=== PATIENT | male | born 1965 | race Two or more races ===

== ENCOUNTER 2020-06-24 22:30 | Inpatient (IN) | payer MEDICARE, MEDICAID ==
[~2020-06-24] VITALS: Ht 162.6 cm; Wt 69.4 kg
[2020-06-24 21:35] VITALS: BP 128/72
[2020-06-24 22:30] VITALS: BP 128/72
[2020-06-25] MEDS ORDERED: AMLO10TA80 PO (00:26)
[2020-06-25] MEDS ORDERED: REN800 PO (00:26)
[2020-06-25] MEDS ORDERED: SITA50TA3 PO (00:26)
[2020-06-25] MEDS ORDERED: LISI2.5T47 PO (00:26)
[2020-06-25] MEDS ORDERED: HYDR-4134 PO (00:26)
[2020-06-25] MEDS ORDERED: FOLI0.8T23 MT (00:26)
[2020-06-25] MEDS ORDERED: CARV3.1242 PO (00:26)
[2020-06-25] MEDS ORDERED: FURO40TA5 PO (00:26)
[2020-06-25] MEDS ORDERED: DOCU250C69 PO (00:26)
[2020-06-25] MEDS: SODIUM CHLORIDE 0.9% 1,000 ML IV SCH (02:45)
[2020-06-25] MEDS ORDERED: DEXTROSE 50% WATER 50ML SYRINGE IV PRN (02:45)
[2020-06-25] MEDS ORDERED: HEPARIN SODIUM 1,000 UNIT/1ML VIAL IV NR (03:00)
[2020-06-25 04:00] VITALS: BP 133/77
[2020-06-25] MEDS ORDERED: PIPERACILLIN/TAZOBACTAM 3.375 G in DEXT 5% WATER 100 ML IV NR (06:00)
[2020-06-25] MEDS: HYDRALAZINE HCL 25MG TABLET PO SCH ×3 (06:34→22:55)
[2020-06-25] MEDS: BLOOD SUGAR DIAGNOSTIC STRIP TEST SCH ×4 (06:34→21:00)
[2020-06-25] MEDS: INSULIN LISPRO 100 UNITS/ML SUBCUT SCH ×4 (07:50→22:06)
[2020-06-25 08:00] VITALS: BP 133/62
[2020-06-25] MEDS ORDERED: PIPERACILLIN/TAZOBACTAM 3.375GM/50ML PREMIX IV SCH (09:00)
[2020-06-25] MEDS: CARVEDILOL 6.25 MG TABLET PO SCH ×2 (11:14→22:03)
[2020-06-25] MEDS: FOLIC ACID/VITAMIN B COMP W-C TABLET PO SCH (11:14)
[2020-06-25] MEDS: ASPIRIN 81MG TABLET PO SCH (11:14)
[2020-06-25] MEDS: ISOSORBIDE MONONITRATE 60MG TABLET SR 24HR PO SCH (11:14)
[2020-06-25] MEDS: FERROUS SULFATE 325MG TABLET PO SCH ×3 (11:14→16:57)
[2020-06-25] MEDS ORDERED: *PATIENT'S OWN MEDICATION STORAGE XX SCH (11:30)
[2020-06-25 12:00] VITALS: BP 155/87
[2020-06-25 12:04] LABS: HEMATOCRIT. 37.1 % (42.0-52.0); HEMOGLOBIN. 12.2 g/dL (14.0-18.0); MEAN CORPUSCULAR HEMOGLOBIN 28.2 pg (28.0-32.0); MEAN CORPUSCULAR VOLUME 85.5 fL (80.0-94.0); MEAN PLATELET VOLUME 8.3 fl (7.4-10.4); PLATELET 160 x1000/uL (130-400); RED BLOOD CELL COUNT 4.34 mill/uL (4.7-6.1); RED CELL DISTRIBUTION WIDTH 18.4 % (11.6-14.6)
[2020-06-25 12:05] LABS: INR 1.1; PROTHROMBIN TIME 11.5 sec (9.6-11.0)
[2020-06-25 13:18] LABS: CREATINE KINASE MB FRACTION 1.6 ng/mL (0.5-3.6)
[2020-06-25 16:00] VITALS: BP 143/75
[2020-06-25 16:42] LABS: PLATELET ESTIMATE NORMAL
[2020-06-25] MEDS: ACETAMINOPHEN 650MG/20.3ML UDC PO PRN (17:45)
[2020-06-25 20:00] VITALS: BP 114/74
[2020-06-25] MEDS: ATORVASTATIN CALCIUM 40MG TABLET PO SCH (22:02)
[2020-06-25] MEDS: INSULIN GLARGINE UD 100 UNITS/ML SYR SUBCUT SCH (22:57)
[2020-06-26] VITALS: BP 121/64
[2020-06-26 04:00] VITALS: BP 137/72
[2020-06-26] MEDS: HYDRALAZINE HCL 25MG TABLET PO SCH ×3 (07:01→21:00)
[2020-06-26] MEDS: BLOOD SUGAR DIAGNOSTIC STRIP TEST SCH ×4 (07:26→20:15)
[2020-06-26] MEDS: INSULIN LISPRO 100 UNITS/ML SUBCUT SCH ×4 (07:27→20:57)
[2020-06-26 08:00] VITALS: BP 152/78
[2020-06-26 08:28] LABS: BASOPHILS % 1.1 % (0.0-2.0); EOSINOPHILS % 2.2 % (0.0-5.0); HEMATOCRIT. 35.1 % (42.0-52.0); HEMOGLOBIN. 11.3 g/dL (14.0-18.0); LYMPHOCYTES % 13.1 % (20.0-50.0); MEAN CORPUSCULAR VOLUME 87.2 fL (80.0-94.0); MEAN PLATELET VOLUME 8.8 fl (7.4-10.4); MONOCYTES % 9.2 % (2.0-8.0); NEUTROPHILS % 74.4 % (40.0-76.0); PLATELET 164 x1000/uL (130-400); RED BLOOD CELL COUNT 4.03 mill/uL (4.7-6.1); RED CELL DISTRIBUTION WIDTH 18.2 % (11.6-14.6)
[2020-06-26 08:41] LABS: PHOSPHORUS 8.5 mg/dL (2.5-4.9)
[2020-06-26] MEDS: MORPHINE SULFATE 2 MG/ML CPJ (NOT FOR IM USE) IV PRN ×2 (09:33→20:58)
[2020-06-26] MEDS: CARVEDILOL 6.25 MG TABLET PO SCH ×2 (09:33→20:59)
[2020-06-26] MEDS: FOLIC ACID/VITAMIN B COMP W-C TABLET PO SCH (09:33)
[2020-06-26] MEDS: ISOSORBIDE MONONITRATE 60MG TABLET SR 24HR PO SCH (09:33)
[2020-06-26] MEDS: ASPIRIN 81MG TABLET PO SCH (09:33)
[2020-06-26] MEDS: FERROUS SULFATE 325MG TABLET PO SCH ×3 (09:34→17:42)
[2020-06-26] MEDS ORDERED: POTASSIUM CHLORIDE 20MEQ TABLET SR PO NR (10:15)
[2020-06-26 12:00] VITALS: BP 148/74
[2020-06-26] MEDS ORDERED: BACITRACIN 50,000 UNITS/VIAL ONE (12:02)
[2020-06-26] MEDS ORDERED: BACITRACIN 15GM TUBE TOP ONE (12:32)
[2020-06-26] MEDS ORDERED: ROPIVACAINE HCL 10MG/ML 20 ML VIAL EPI ONE (12:33)
[2020-06-26] MEDS ORDERED: VANCOMYCIN HCL 1 GM/VIAL ONE (12:33)
[2020-06-26] MEDS ORDERED: MIDAZOLAM HCL 2 MG/2 ML VIAL ONE (12:50)
[2020-06-26] MEDS: SEVELAMER CARBONATE 800 MG TABLET PO SCH ×2 (12:50→17:42)
[2020-06-26] MEDS ORDERED: ONDANSETRON HCL 4MG/2ML INJ ONE (13:52)
[2020-06-26] MEDS ORDERED: DEXAMETHASONE 4MG/ML 1ML VIAL ONE (13:53)
[2020-06-26] MEDS ORDERED: EPHEDRINE SULFATE 50MG/ML VIAL ONE (13:57)
[2020-06-26] MEDS ORDERED: HYDROMORPHONE HCL/PF 2MG/ML CPJ IV PRN (15:15)
[2020-06-26] MEDS: PIPERACILLIN/TAZOBACTAM 2.25 G in DEXTROSE 5% WATER 50 ML IV SCH (18:55)
[2020-06-26 20:00] VITALS: BP 125/71
[2020-06-26] MEDS: ATORVASTATIN CALCIUM 40MG TABLET PO SCH (20:58)
[2020-06-26] MEDS: INSULIN GLARGINE UD 100 UNITS/ML SYR SUBCUT SCH (22:00)
[2020-06-27] VITALS: BP 141/73
[2020-06-27 04:00] VITALS: BP 168/75
[2020-06-27] MEDS: MORPHINE SULFATE 2 MG/ML CPJ (NOT FOR IM USE) IV PRN ×5 (05:13→22:01)
[2020-06-27] MEDS: SODIUM CHLORIDE 0.9% 1,000 ML IV SCH ×2 (05:14→22:18)
[2020-06-27] MEDS: PIPERACILLIN/TAZOBACTAM 2.25 G in DEXTROSE 5% WATER 50 ML IV SCH ×2 (05:14→17:25)
[2020-06-27] MEDS: HYDRALAZINE HCL 25MG TABLET PO SCH ×3 (05:44→22:05)
[2020-06-27] MEDS: BLOOD SUGAR DIAGNOSTIC STRIP TEST SCH ×4 (05:47→21:57)
[2020-06-27 06:46] LABS: BASOPHILS % 0.3 % (0.0-2.0); EOSINOPHILS % 0.1 % (0.0-5.0); HEMATOCRIT. 36.1 % (42.0-52.0); HEMOGLOBIN. 11.8 g/dL (14.0-18.0); LYMPHOCYTES % 8.8 % (20.0-50.0); MEAN CORPUSCULAR HEMOGLOBIN 27.5 pg (28.0-32.0); MEAN CORPUSCULAR VOLUME 84.4 fL (80.0-94.0); NEUTROPHILS % 82.8 % (40.0-76.0); PLATELET 151 x1000/uL (130-400); RED BLOOD CELL COUNT 4.28 mill/uL (4.7-6.1); RED CELL DISTRIBUTION WIDTH 17.9 % (11.6-14.6)
[2020-06-27 07:02] LABS: PHOSPHORUS 6.3 mg/dL (2.5-4.9)
[2020-06-27 08:00] VITALS: BP 152/70
[2020-06-27] MEDS: SEVELAMER CARBONATE 800 MG TABLET PO SCH ×3 (08:57→17:23)
[2020-06-27] MEDS: FERROUS SULFATE 325MG TABLET PO SCH ×3 (08:57→17:23)
[2020-06-27] MEDS: INSULIN LISPRO 100 UNITS/ML SUBCUT SCH ×4 (09:05→21:45)
[2020-06-27] MEDS: FOLIC ACID/VITAMIN B COMP W-C TABLET PO SCH (09:07)
[2020-06-27] MEDS: ISOSORBIDE MONONITRATE 60MG TABLET SR 24HR PO SCH (09:07)
[2020-06-27] MEDS: ASPIRIN 81MG TABLET PO SCH (09:07)
[2020-06-27] MEDS: CARVEDILOL 6.25 MG TABLET PO SCH ×2 (09:07→21:57)
[2020-06-27 12:00] VITALS: BP 121/51
[2020-06-27 16:00] VITALS: BP 138/56
[2020-06-27 21:10] VITALS: BP 152/47
[2020-06-27] MEDS: INSULIN GLARGINE UD 100 UNITS/ML SYR SUBCUT SCH (21:46)
[2020-06-27] MEDS: ATORVASTATIN CALCIUM 40MG TABLET PO SCH (21:56)
[2020-06-28] MEDS: ACETAMINOPHEN 650MG/20.3ML UDC PO PRN (00:15)
[2020-06-28 01:03] VITALS: BP 131/53
[2020-06-28] MEDS: MORPHINE SULFATE 2 MG/ML CPJ (NOT FOR IM USE) IV PRN ×3 (01:42→19:59)
[2020-06-28 04:53] VITALS: BP 151/58
[2020-06-28] MEDS: SODIUM CHLORIDE 0.9% 1,000 ML IV SCH ×2 (05:05→21:46)
[2020-06-28] MEDS: BLOOD SUGAR DIAGNOSTIC STRIP TEST SCH ×4 (05:57→21:46)
[2020-06-28] MEDS: INSULIN LISPRO 100 UNITS/ML SUBCUT SCH ×4 (05:57→21:50)
[2020-06-28] MEDS: PIPERACILLIN/TAZOBACTAM 2.25 G in DEXTROSE 5% WATER 50 ML IV SCH ×2 (05:59→18:44)
[2020-06-28] MEDS: HYDRALAZINE HCL 25MG TABLET PO SCH ×3 (06:00→21:37)
[2020-06-28 07:17] LABS: BASOPHILS % 0.8 % (0.0-2.0); EOSINOPHILS % 1.9 % (0.0-5.0); HEMATOCRIT. 32.2 % (42.0-52.0); HEMOGLOBIN. 10.6 g/dL (14.0-18.0); MEAN CORPUSCULAR HEMOGLOBIN 28.2 pg (28.0-32.0); MEAN CORPUSCULAR VOLUME 85.2 fL (80.0-94.0); MEAN PLATELET VOLUME 7.7 fl (7.4-10.4); MONOCYTES % 8.2 % (2.0-8.0); NEUTROPHILS % 78.1 % (40.0-76.0); PLATELET 130 x1000/uL (130-400); RED BLOOD CELL COUNT 3.77 mill/uL (4.7-6.1); RED CELL DISTRIBUTION WIDTH 17.4 % (11.6-14.6)
[2020-06-28 07:26] LABS: PHOSPHORUS 5.6 mg/dL (2.5-4.9)
[2020-06-28 08:00] VITALS: BP 159/68
[2020-06-28] MEDS: SEVELAMER CARBONATE 800 MG TABLET PO SCH ×3 (08:53→17:42)
[2020-06-28] MEDS: ISOSORBIDE MONONITRATE 60MG TABLET SR 24HR PO SCH (08:54)
[2020-06-28] MEDS: CARVEDILOL 6.25 MG TABLET PO SCH ×2 (08:55→21:37)
[2020-06-28] MEDS: ASPIRIN 81MG TABLET PO SCH (08:55)
[2020-06-28] MEDS: FERROUS SULFATE 325MG TABLET PO SCH ×3 (08:55→18:41)
[2020-06-28] MEDS: FOLIC ACID/VITAMIN B COMP W-C TABLET PO SCH (08:56)
[2020-06-28] MEDS: HYDROCODONE/ACETAMINOPHEN 10/325MG TABLET PO PRN ×4 (10:33→22:39)
[2020-06-28 12:00] VITALS: BP 104/42
[2020-06-28 16:00] VITALS: BP 143/64
[2020-06-28 20:00] VITALS: BP 169/81
[2020-06-28] MEDS: ATORVASTATIN CALCIUM 40MG TABLET PO SCH (21:37)
[2020-06-28] MEDS: INSULIN GLARGINE UD 100 UNITS/ML SYR SUBCUT SCH (21:50)
[2020-06-29 04:00] VITALS: BP 144/63
[2020-06-29] MEDS: HYDRALAZINE HCL 25MG TABLET PO SCH ×3 (05:55→21:00)
[2020-06-29] MEDS: PIPERACILLIN/TAZOBACTAM 2.25 G in DEXTROSE 5% WATER 50 ML IV SCH ×2 (05:55→17:32)
[2020-06-29] MEDS: BLOOD SUGAR DIAGNOSTIC STRIP TEST SCH ×4 (05:56→20:57)
[2020-06-29] MEDS: INSULIN LISPRO 100 UNITS/ML SUBCUT SCH ×4 (05:58→20:57)
[2020-06-29] MEDS: HYDROCODONE/ACETAMINOPHEN 10/325MG TABLET PO PRN ×3 (06:04→22:46)
[2020-06-29 07:23] LABS: EOSINOPHILS % 1.7 % (0.0-5.0); HEMATOCRIT. 33.8 % (42.0-52.0); HEMOGLOBIN. 11.1 g/dL (14.0-18.0); LYMPHOCYTES % 10.8 % (20.0-50.0); MEAN CORPUSCULAR HEMOGLOBIN 28.1 pg (28.0-32.0); MEAN CORPUSCULAR VOLUME 85.5 fL (80.0-94.0); MONOCYTES % 8.5 % (2.0-8.0); PLATELET 126 x1000/uL (130-400); RED BLOOD CELL COUNT 3.96 mill/uL (4.7-6.1); RED CELL DISTRIBUTION WIDTH 17.7 % (11.6-14.6)
[2020-06-29 08:00] VITALS: BP 152/63
[2020-06-29 08:06] LABS: PHOSPHORUS 4.1 mg/dL (2.5-4.9)
[2020-06-29] MEDS: ISOSORBIDE MONONITRATE 60MG TABLET SR 24HR PO SCH (09:25)
[2020-06-29] MEDS: ASPIRIN 81MG TABLET PO SCH (09:28)
[2020-06-29] MEDS: FOLIC ACID/VITAMIN B COMP W-C TABLET PO SCH (09:28)
[2020-06-29] MEDS: FERROUS SULFATE 325MG TABLET PO SCH ×3 (09:28→17:32)
[2020-06-29] MEDS: CARVEDILOL 6.25 MG TABLET PO SCH ×2 (09:28→20:57)
[2020-06-29] MEDS: SEVELAMER CARBONATE 800 MG TABLET PO SCH ×3 (09:30→17:32)
[2020-06-29 12:00] VITALS: BP 125/56
[2020-06-29 16:00] VITALS: BP 139/62
[2020-06-29 20:00] VITALS: BP 146/71
[2020-06-29] MEDS: ATORVASTATIN CALCIUM 40MG TABLET PO SCH (20:56)
[2020-06-29] MEDS: INSULIN GLARGINE UD 100 UNITS/ML SYR SUBCUT SCH (21:00)
[2020-06-30] VITALS: BP 166/68
[2020-06-30] MEDS: SODIUM CHLORIDE 0.9% 1,000 ML IV SCH (03:46)
[2020-06-30 04:00] VITALS: BP 166/74
[2020-06-30] MEDS: MORPHINE SULFATE 2 MG/ML CPJ (NOT FOR IM USE) IV PRN ×2 (04:39→12:57)
[2020-06-30] MEDS: PIPERACILLIN/TAZOBACTAM 2.25 G in DEXTROSE 5% WATER 50 ML IV SCH ×2 (05:27→17:54)
[2020-06-30] MEDS: HYDRALAZINE HCL 25MG TABLET PO SCH ×3 (05:27→21:12)
[2020-06-30] MEDS: BLOOD SUGAR DIAGNOSTIC STRIP TEST SCH ×4 (06:28→21:12)
[2020-06-30 06:46] LABS: HEMATOCRIT. 31.1 % (42.0-52.0); HEMOGLOBIN. 10.2 g/dL (14.0-18.0); MEAN CORPUSCULAR HEMOGLOBIN 28.3 pg (28.0-32.0); MEAN CORPUSCULAR VOLUME 86.2 fL (80.0-94.0); MEAN PLATELET VOLUME 7.8 fl (7.4-10.4); PLATELET 110 x1000/uL (130-400); RED CELL DISTRIBUTION WIDTH 17.8 % (11.6-14.6)
[2020-06-30 07:42] LABS: PHOSPHORUS 3.9 mg/dL (2.5-4.9)
[2020-06-30] MEDS: INSULIN LISPRO 100 UNITS/ML SUBCUT SCH ×4 (07:50→21:19)
[2020-06-30 08:00] VITALS: BP 144/70
[2020-06-30] MEDS: FERROUS SULFATE 325MG TABLET PO SCH ×3 (08:58→17:54)
[2020-06-30] MEDS: SEVELAMER CARBONATE 800 MG TABLET PO SCH ×3 (08:58→17:54)
[2020-06-30] MEDS: HYDROCODONE/ACETAMINOPHEN 10/325MG TABLET PO PRN ×2 (09:56→18:18)
[2020-06-30] MEDS: ASPIRIN 81MG TABLET PO SCH (09:56)
[2020-06-30] MEDS: ISOSORBIDE MONONITRATE 60MG TABLET SR 24HR PO SCH (09:57)
[2020-06-30] MEDS: CARVEDILOL 6.25 MG TABLET PO SCH ×2 (09:57→21:11)
[2020-06-30] MEDS: FOLIC ACID/VITAMIN B COMP W-C TABLET PO SCH (09:57)
[2020-06-30 12:00] VITALS: BP 134/57
[2020-06-30 16:00] VITALS: BP 153/62
[2020-06-30 20:00] VITALS: BP_SYST 127; BP_SYST 148; BP_DIAS 61; BP_DIAS 71
[2020-06-30 20:38] LABS: PLATELET ESTIMATE DECREASED
[2020-06-30] MEDS: ATORVASTATIN CALCIUM 40MG TABLET PO SCH (21:12)
[2020-06-30] MEDS: INSULIN GLARGINE UD 100 UNITS/ML SYR SUBCUT SCH (21:20)
[2020-07-01] VITALS: BP 177/91
[2020-07-01] MEDS: SODIUM CHLORIDE 0.9% 1,000 ML IV SCH (01:49)
[2020-07-01 04:00] VITALS: BP 161/84
[2020-07-01] MEDS: HYDRALAZINE HCL 25MG TABLET PO SCH ×3 (05:37→22:53)
[2020-07-01 06:15] LABS: HEMATOCRIT. 34.1 % (42.0-52.0); HEMOGLOBIN. 11.1 g/dL (14.0-18.0); MEAN CORPUSCULAR HEMOGLOBIN 27.8 pg (28.0-32.0); MEAN CORPUSCULAR VOLUME 85.3 fL (80.0-94.0); MEAN PLATELET VOLUME 7.8 fl (7.4-10.4); PLATELET 120 x1000/uL (130-400); RED CELL DISTRIBUTION WIDTH 17.8 % (11.6-14.6)
[2020-07-01] MEDS: BLOOD SUGAR DIAGNOSTIC STRIP TEST SCH ×4 (06:53→21:00)
[2020-07-01 07:06] LABS: PHOSPHORUS 4.1 mg/dL (2.5-4.9)
[2020-07-01] MEDS: INSULIN LISPRO 100 UNITS/ML SUBCUT SCH ×4 (07:50→21:00)
[2020-07-01 08:00] VITALS: BP 148/63
[2020-07-01] MEDS: FERROUS SULFATE 325MG TABLET PO SCH ×3 (08:45→17:21)
[2020-07-01] MEDS: ASPIRIN 81MG TABLET PO SCH (08:45)
[2020-07-01] MEDS: HYDROCODONE/ACETAMINOPHEN 10/325MG TABLET PO PRN ×3 (08:47→20:09)
[2020-07-01] MEDS: FOLIC ACID/VITAMIN B COMP W-C TABLET PO SCH (08:47)
[2020-07-01] MEDS: SEVELAMER CARBONATE 800 MG TABLET PO SCH ×3 (08:47→17:21)
[2020-07-01] MEDS: ISOSORBIDE MONONITRATE 60MG TABLET SR 24HR PO SCH (08:48)
[2020-07-01] MEDS: CARVEDILOL 6.25 MG TABLET PO SCH (08:48)
[2020-07-01] MEDS: ACETAMINOPHEN 650MG/20.3ML UDC PO PRN (10:24)
[2020-07-01 12:00] VITALS: BP 118/40
[2020-07-01 13:54] LABS: PLATELET ESTIMATE DECREASED
[2020-07-01] MEDS: MEROPENEM 500MG in NORMAL SALINE 50ML IV SCH (15:38)
[2020-07-01 16:00] VITALS: BP 157/74
[2020-07-01 20:00] VITALS: BP 118/63
[2020-07-01] MEDS: ATORVASTATIN CALCIUM 40MG TABLET PO SCH (21:04)
[2020-07-01] MEDS: INSULIN GLARGINE UD 100 UNITS/ML SYR SUBCUT SCH (21:14)
[2020-07-01] MEDS: CARVEDILOL 12.5MG TABLET PO SCH (22:54)
[2020-07-02] VITALS: BP 157/79
[2020-07-02] MEDS: HYDROCODONE/ACETAMINOPHEN 10/325MG TABLET PO PRN ×5 (00:08→23:14)
[2020-07-02] MEDS: SODIUM CHLORIDE 0.9% 1,000 ML IV SCH (02:45)
[2020-07-02 04:00] VITALS: BP 149/80
[2020-07-02 06:59] LABS: HEMATOCRIT. 34.1 % (42.0-52.0); HEMOGLOBIN. 10.9 g/dL (14.0-18.0); MEAN CORPUSCULAR HEMOGLOBIN 27.5 pg (28.0-32.0); MEAN PLATELET VOLUME 7.2 fl (7.4-10.4); PLATELET 113 x1000/uL (130-400); RED BLOOD CELL COUNT 3.97 mill/uL (4.7-6.1); RED CELL DISTRIBUTION WIDTH 17.6 % (11.6-14.6)
[2020-07-02] MEDS: BLOOD SUGAR DIAGNOSTIC STRIP TEST SCH ×4 (06:59→21:00)
[2020-07-02] MEDS: HYDRALAZINE HCL 25MG TABLET PO SCH ×3 (07:09→23:12)
[2020-07-02 07:25] LABS: PHOSPHORUS 3.4 mg/dL (2.5-4.9)
[2020-07-02] MEDS: INSULIN LISPRO 100 UNITS/ML SUBCUT SCH ×4 (07:50→21:00)
[2020-07-02 08:00] VITALS: BP 124/74
[2020-07-02] MEDS: SEVELAMER CARBONATE 800 MG TABLET PO SCH ×3 (08:42→18:16)
[2020-07-02] MEDS: CARVEDILOL 12.5MG TABLET PO SCH ×2 (08:43→22:53)
[2020-07-02] MEDS: FERROUS SULFATE 325MG TABLET PO SCH ×3 (08:43→18:16)
[2020-07-02] MEDS: FOLIC ACID/VITAMIN B COMP W-C TABLET PO SCH (08:43)
[2020-07-02] MEDS: ASPIRIN 81MG TABLET PO SCH (08:45)
[2020-07-02] MEDS: ISOSORBIDE MONONITRATE 60MG TABLET SR 24HR PO SCH (08:45)
[2020-07-02 12:00] VITALS: BP 120/54
[2020-07-02] MEDS ORDERED: MEROPENEM 1000MG in NORMAL SALINE 100ML IV SCH (14:00)
[2020-07-02] MEDS: MEROPENEM 500MG in NORMAL SALINE 50ML IV SCH (14:48)
[2020-07-02 16:00] VITALS: BP 122/56
[2020-07-02] MEDS ORDERED: MEROPENEM 500 MG in SODIUM CHLORIDE 0.9% 50 ML IV SCH (16:00)
[2020-07-02] MEDS ORDERED: VANCOMYCIN 1500MG in DEXTROSE 5% WATER 250ML IV SCH (17:00)
[2020-07-02 18:24] LABS: PLATELET ESTIMATE DECREASED
[2020-07-02 20:00] VITALS: BP 133/54
[2020-07-02] MEDS: ATORVASTATIN CALCIUM 40MG TABLET PO SCH (22:46)
[2020-07-02] MEDS: INSULIN GLARGINE UD 100 UNITS/ML SYR SUBCUT SCH (22:46)
[2020-07-03] VITALS: BP 144/54
[2020-07-03] MEDS: SODIUM CHLORIDE 0.9% 1,000 ML IV SCH (02:45)
[2020-07-03 04:00] VITALS: BP 152/61
[2020-07-03] MEDS: HYDRALAZINE HCL 25MG TABLET PO SCH ×3 (07:05→21:38)
[2020-07-03] MEDS: BLOOD SUGAR DIAGNOSTIC STRIP TEST SCH ×4 (07:20→21:30)
[2020-07-03] MEDS: INSULIN LISPRO 100 UNITS/ML SUBCUT SCH ×4 (07:50→21:00)
[2020-07-03 08:00] VITALS: BP 143/87
[2020-07-03] MEDS: SEVELAMER CARBONATE 800 MG TABLET PO SCH ×3 (09:23→17:46)
[2020-07-03] MEDS: ZINC SULFATE 220 MG ( 50 ) CAPSULE PO SCH (09:23)
[2020-07-03] MEDS: FOLIC ACID/VITAMIN B COMP W-C TABLET PO SCH (09:23)
[2020-07-03] MEDS: FERROUS SULFATE 325MG TABLET PO SCH ×3 (09:23→17:47)
[2020-07-03] MEDS: ASPIRIN 81MG TABLET PO SCH (09:23)
[2020-07-03] MEDS: HYDROCODONE/ACETAMINOPHEN 10/325MG TABLET PO PRN ×2 (09:24→17:48)
[2020-07-03] MEDS: ISOSORBIDE MONONITRATE 60MG TABLET SR 24HR PO SCH (09:24)
[2020-07-03] MEDS: CARVEDILOL 12.5MG TABLET PO SCH ×2 (09:24→21:39)
[2020-07-03 09:27] LABS: HEMATOCRIT. 29.1 % (42.0-52.0); HEMOGLOBIN. 9.7 g/dL (14.0-18.0); MEAN CORPUSCULAR HEMOGLOBIN 28.1 pg (28.0-32.0); MEAN CORPUSCULAR VOLUME 84.8 fL (80.0-94.0); MEAN PLATELET VOLUME 7.5 fl (7.4-10.4); PLATELET 121 x1000/uL (130-400); RED BLOOD CELL COUNT 3.44 mill/uL (4.7-6.1); RED CELL DISTRIBUTION WIDTH 17.6 % (11.6-14.6)
[2020-07-03 09:44] LABS: PHOSPHORUS 2.9 mg/dL (2.5-4.9)
[2020-07-03 12:00] VITALS: BP 142/68
[2020-07-03] MEDS: MICAFUNGIN 100 MG in SODIUM CHLORIDE 0.9% 100 ML IV SCH (13:04)
[2020-07-03 16:00] VITALS: BP 124/68
[2020-07-03 20:00] VITALS: BP 103/51
[2020-07-03 21:11] LABS: PLATELET ESTIMATE DECREASED
[2020-07-03] MEDS: ATORVASTATIN CALCIUM 40MG TABLET PO SCH (21:38)
[2020-07-03] MEDS: INSULIN GLARGINE UD 100 UNITS/ML SYR SUBCUT SCH (21:39)
[2020-07-04] VITALS: BP 136/57
[2020-07-04] MEDS: HYDROCODONE/ACETAMINOPHEN 10/325MG TABLET PO PRN ×5 (02:36→23:01)
[2020-07-04] MEDS: SODIUM CHLORIDE 0.9% 1,000 ML IV SCH (02:45)
[2020-07-04 04:00] VITALS: BP 139/56
[2020-07-04] MEDS: HYDRALAZINE HCL 25MG TABLET PO SCH ×3 (06:40→21:39)
[2020-07-04 07:13] LABS: BASOPHILS % 0.3 % (0.0-2.0); EOSINOPHILS % 2.7 % (0.0-5.0); HEMATOCRIT. 29.9 % (42.0-52.0); HEMOGLOBIN. 9.7 g/dL (14.0-18.0); LYMPHOCYTES % 13.6 % (20.0-50.0); MEAN CORPUSCULAR HEMOGLOBIN 27.8 pg (28.0-32.0); MEAN CORPUSCULAR VOLUME 85.1 fL (80.0-94.0); MEAN PLATELET VOLUME 7.7 fl (7.4-10.4); MONOCYTES % 11.5 % (2.0-8.0); NEUTROPHILS % 71.9 % (40.0-76.0); PLATELET 119 x1000/uL (130-400); RED BLOOD CELL COUNT 3.51 mill/uL (4.7-6.1); RED CELL DISTRIBUTION WIDTH 17.6 % (11.6-14.6)
[2020-07-04 07:22] LABS: PHOSPHORUS 2.4 mg/dL (2.5-4.9)
[2020-07-04] MEDS: BLOOD SUGAR DIAGNOSTIC STRIP TEST SCH ×4 (07:32→21:39)
[2020-07-04] MEDS: INSULIN LISPRO 100 UNITS/ML SUBCUT SCH ×4 (07:50→21:55)
[2020-07-04 08:00] VITALS: BP 182/65
[2020-07-04] MEDS: ASPIRIN 81MG TABLET PO SCH (08:47)
[2020-07-04] MEDS: ZINC SULFATE 220 MG ( 50 ) CAPSULE PO SCH (08:47)
[2020-07-04] MEDS: SEVELAMER CARBONATE 800 MG TABLET PO SCH (08:47)
[2020-07-04] MEDS: CARVEDILOL 12.5MG TABLET PO SCH ×2 (08:48→21:38)
[2020-07-04] MEDS: FOLIC ACID/VITAMIN B COMP W-C TABLET PO SCH (08:48)
[2020-07-04] MEDS: FERROUS SULFATE 325MG TABLET PO SCH ×3 (08:48→16:57)
[2020-07-04] MEDS: ISOSORBIDE MONONITRATE 60MG TABLET SR 24HR PO SCH (08:48)
[2020-07-04] MEDS: ENOXAPARIN 80MG/0.8ML SYR SUBCUT SCH (10:39)
[2020-07-04] MEDS: MICAFUNGIN 100 MG in SODIUM CHLORIDE 0.9% 100 ML IV SCH (11:42)
[2020-07-04 12:00] VITALS: BP 172/72
[2020-07-04 16:00] VITALS: BP 161/65
[2020-07-04 20:00] VITALS: BP 137/59
[2020-07-04] MEDS: ATORVASTATIN CALCIUM 40MG TABLET PO SCH (21:38)
[2020-07-04] MEDS: INSULIN GLARGINE UD 100 UNITS/ML SYR SUBCUT SCH (21:56)
[2020-07-05] VITALS (7 sets, daily range): BP systolic 135–166; BP diastolic 62–75
[2020-07-05] MEDS: SODIUM CHLORIDE 0.9% 1,000 ML IV SCH ×2 (02:45→23:32)
[2020-07-05] MEDS: HYDROCODONE/ACETAMINOPHEN 10/325MG TABLET PO PRN ×5 (04:57→23:31)
[2020-07-05] MEDS: HYDRALAZINE HCL 25MG TABLET PO SCH (05:21)
[2020-07-05 07:19] LABS: BASOPHILS % 0.6 % (0.0-2.0); EOSINOPHILS % 2.5 % (0.0-5.0); HEMATOCRIT. 29.9 % (42.0-52.0); HEMOGLOBIN. 9.8 g/dL (14.0-18.0); LYMPHOCYTES % 15.2 % (20.0-50.0); MEAN CORPUSCULAR VOLUME 85.4 fL (80.0-94.0); MEAN PLATELET VOLUME 7.3 fl (7.4-10.4); MONOCYTES % 9.7 % (2.0-8.0); PLATELET 133 x1000/uL (130-400); RED BLOOD CELL COUNT 3.49 mill/uL (4.7-6.1); RED CELL DISTRIBUTION WIDTH 17.2 % (11.6-14.6)
[2020-07-05] MEDS: BLOOD SUGAR DIAGNOSTIC STRIP TEST SCH ×4 (07:26→21:00)
[2020-07-05 07:27] LABS: PHOSPHORUS 2.5 mg/dL (2.5-4.9)
[2020-07-05] MEDS: INSULIN LISPRO 100 UNITS/ML SUBCUT SCH ×4 (07:29→21:00)
[2020-07-05] MEDS: ENOXAPARIN 80MG/0.8ML SYR SUBCUT SCH (08:37)
[2020-07-05] MEDS: CARVEDILOL 12.5MG TABLET PO SCH ×2 (08:37→22:30)
[2020-07-05] MEDS: ASPIRIN 81MG TABLET PO SCH (08:46)
[2020-07-05] MEDS: FERROUS SULFATE 325MG TABLET PO SCH ×3 (08:46→17:01)
[2020-07-05] MEDS: ISOSORBIDE MONONITRATE 60MG TABLET SR 24HR PO SCH (08:46)
[2020-07-05] MEDS: ZINC SULFATE 220 MG ( 50 ) CAPSULE PO SCH (08:47)
[2020-07-05] MEDS: FOLIC ACID/VITAMIN B COMP W-C TABLET PO SCH (08:47)
[2020-07-05] MEDS ORDERED: LIDOCAINE HCL 1% 20ML VIAL (Pyxis) INJ ONE (11:34)
[2020-07-05] MEDS: MICAFUNGIN 100 MG in SODIUM CHLORIDE 0.9% 100 ML IV SCH (12:12)
[2020-07-05] MEDS: HYDRALAZINE HCL 50MG TABLET PO SCH ×2 (13:33→22:30)
[2020-07-05] MEDS: ATORVASTATIN CALCIUM 40MG TABLET PO SCH (22:30)
[2020-07-05] MEDS: INSULIN GLARGINE UD 100 UNITS/ML SYR SUBCUT SCH (22:33)
[2020-07-06] VITALS: BP 163/71
[2020-07-06 04:00] VITALS: BP 145/59
[2020-07-06] MEDS: HYDRALAZINE HCL 50MG TABLET PO SCH ×3 (06:08→21:14)
[2020-07-06 07:12] LABS: BASOPHILS % 0.7 % (0.0-2.0); HEMOGLOBIN. 9.8 g/dL (14.0-18.0); LYMPHOCYTES % 15.9 % (20.0-50.0); MEAN CORPUSCULAR HEMOGLOBIN 27.6 pg (28.0-32.0); MEAN CORPUSCULAR VOLUME 84.6 fL (80.0-94.0); MONOCYTES % 9.7 % (2.0-8.0); NEUTROPHILS % 71.7 % (40.0-76.0); PLATELET 147 x1000/uL (130-400); RED BLOOD CELL COUNT 3.55 mill/uL (4.7-6.1); RED CELL DISTRIBUTION WIDTH 17.8 % (11.6-14.6)
[2020-07-06] MEDS: BLOOD SUGAR DIAGNOSTIC STRIP TEST SCH ×4 (07:20→21:01)
[2020-07-06] MEDS: INSULIN LISPRO 100 UNITS/ML SUBCUT SCH ×4 (07:50→21:00)
[2020-07-06 08:00] VITALS: BP 173/64
[2020-07-06 08:32] LABS: PHOSPHORUS 2.6 mg/dL (2.5-4.9)
[2020-07-06] MEDS: ENOXAPARIN 80MG/0.8ML SYR SUBCUT SCH (09:09)
[2020-07-06] MEDS: ASPIRIN 81MG TABLET PO SCH (09:10)
[2020-07-06] MEDS: FOLIC ACID/VITAMIN B COMP W-C TABLET PO SCH (09:10)
[2020-07-06] MEDS: ISOSORBIDE MONONITRATE 60MG TABLET SR 24HR PO SCH (09:10)
[2020-07-06] MEDS: CARVEDILOL 12.5MG TABLET PO SCH ×2 (09:11→21:14)
[2020-07-06] MEDS: ZINC SULFATE 220 MG ( 50 ) CAPSULE PO SCH (09:11)
[2020-07-06] MEDS: FERROUS SULFATE 325MG TABLET PO SCH ×3 (09:54→17:57)
[2020-07-06 12:00] VITALS: BP 135/60
[2020-07-06] MEDS: MICAFUNGIN 100 MG in SODIUM CHLORIDE 0.9% 100 ML IV SCH (13:14)
[2020-07-06] MEDS: HYDROCODONE/ACETAMINOPHEN 10/325MG TABLET PO PRN ×2 (13:56→20:57)
[2020-07-06 16:00] VITALS: BP 135/60
[2020-07-06 20:00] VITALS: BP 156/99
[2020-07-06] MEDS: ATORVASTATIN CALCIUM 40MG TABLET PO SCH (21:14)
[2020-07-06] MEDS: INSULIN GLARGINE UD 100 UNITS/ML SYR SUBCUT SCH (21:15)
[2020-07-07] VITALS: BP 136/77
[2020-07-07] MEDS: SODIUM CHLORIDE 0.9% 1,000 ML IV SCH (02:17)
[2020-07-07 04:00] VITALS: BP 140/88
[2020-07-07] MEDS: HYDROCODONE/ACETAMINOPHEN 10/325MG TABLET PO PRN ×4 (04:26→22:15)
[2020-07-07] MEDS: HYDRALAZINE HCL 50MG TABLET PO SCH ×3 (06:32→22:16)
[2020-07-07] MEDS: BLOOD SUGAR DIAGNOSTIC STRIP TEST SCH ×4 (06:37→21:00)
[2020-07-07 07:13] LABS: BASOPHILS % 0.6 % (0.0-2.0); EOSINOPHILS % 1.7 % (0.0-5.0); HEMOGLOBIN. 9.3 g/dL (14.0-18.0); LYMPHOCYTES % 12.1 % (20.0-50.0); MEAN CORPUSCULAR HEMOGLOBIN 27.9 pg (28.0-32.0); MEAN CORPUSCULAR VOLUME 83.8 fL (80.0-94.0); MEAN PLATELET VOLUME 7.2 fl (7.4-10.4); MONOCYTES % 8.6 % (2.0-8.0); PLATELET 163 x1000/uL (130-400); RED BLOOD CELL COUNT 3.34 mill/uL (4.7-6.1); RED CELL DISTRIBUTION WIDTH 17.9 % (11.6-14.6)
[2020-07-07] MEDS: INSULIN LISPRO 100 UNITS/ML SUBCUT SCH ×4 (07:50→21:00)
[2020-07-07 07:54] LABS: PHOSPHORUS 2.7 mg/dL (2.5-4.9)
[2020-07-07 08:00] VITALS: BP 152/90
[2020-07-07] MEDS: ASPIRIN 81MG TABLET PO SCH (08:32)
[2020-07-07] MEDS: FOLIC ACID/VITAMIN B COMP W-C TABLET PO SCH (08:33)
[2020-07-07] MEDS: ZINC SULFATE 220 MG ( 50 ) CAPSULE PO SCH (08:33)
[2020-07-07] MEDS: FERROUS SULFATE 325MG TABLET PO SCH ×3 (08:33→18:07)
[2020-07-07] MEDS: CARVEDILOL 12.5MG TABLET PO SCH ×2 (08:34→22:17)
[2020-07-07] MEDS: ENOXAPARIN 80MG/0.8ML SYR SUBCUT SCH (08:35)
[2020-07-07] MEDS: ISOSORBIDE MONONITRATE 60MG TABLET SR 24HR PO SCH (08:35)
[2020-07-07 12:00] VITALS: BP 139/66
[2020-07-07] MEDS: ACETAMINOPHEN 650MG/20.3ML UDC PO PRN (13:25)
[2020-07-07 16:00] VITALS: BP 119/52
[2020-07-07] MEDS: MICAFUNGIN 100 MG in SODIUM CHLORIDE 0.9% 100 ML IV SCH (18:15)
[2020-07-07 20:00] VITALS: BP 141/52
[2020-07-07] MEDS: ATORVASTATIN CALCIUM 40MG TABLET PO SCH (22:16)
[2020-07-07] MEDS: INSULIN GLARGINE UD 100 UNITS/ML SYR SUBCUT SCH (22:26)
[2020-07-08] VITALS: BP 137/60
[2020-07-08] MEDS: SODIUM CHLORIDE 0.9% 1,000 ML IV SCH (01:51)
[2020-07-08 04:00] VITALS: BP 133/76
[2020-07-08] MEDS: HYDRALAZINE HCL 50MG TABLET PO SCH ×3 (06:02→21:09)
[2020-07-08] MEDS: HYDROCODONE/ACETAMINOPHEN 10/325MG TABLET PO PRN ×3 (06:03→21:08)
[2020-07-08 07:31] LABS: BASOPHILS % 0.6 % (0.0-2.0); EOSINOPHILS % 2.5 % (0.0-5.0); HEMATOCRIT. 29.1 % (42.0-52.0); HEMOGLOBIN. 9.3 g/dL (14.0-18.0); LYMPHOCYTES % 12.5 % (20.0-50.0); MEAN CORPUSCULAR HEMOGLOBIN 27.1 pg (28.0-32.0); MEAN PLATELET VOLUME 7.1 fl (7.4-10.4); MONOCYTES % 9.4 % (2.0-8.0); PLATELET 186 x1000/uL (130-400); RED BLOOD CELL COUNT 3.42 mill/uL (4.7-6.1); RED CELL DISTRIBUTION WIDTH 17.7 % (11.6-14.6)
[2020-07-08] MEDS: INSULIN LISPRO 100 UNITS/ML SUBCUT SCH ×4 (07:50→21:00)
[2020-07-08] MEDS: BLOOD SUGAR DIAGNOSTIC STRIP TEST SCH ×4 (07:52→21:09)
[2020-07-08 08:00] VITALS: BP 149/52
[2020-07-08 08:04] LABS: PHOSPHORUS 2.6 mg/dL (2.5-4.9)
[2020-07-08] MEDS: ZINC SULFATE 220 MG ( 50 ) CAPSULE PO SCH (09:00)
[2020-07-08] MEDS: FOLIC ACID/VITAMIN B COMP W-C TABLET PO SCH (09:15)
[2020-07-08] MEDS: ASPIRIN 81MG TABLET PO SCH (09:15)
[2020-07-08] MEDS: ENOXAPARIN 80MG/0.8ML SYR SUBCUT SCH (09:16)
[2020-07-08] MEDS: ISOSORBIDE MONONITRATE 60MG TABLET SR 24HR PO SCH (09:16)
[2020-07-08] MEDS: ACETAMINOPHEN 650MG/20.3ML UDC PO PRN (09:16)
[2020-07-08] MEDS: CARVEDILOL 12.5MG TABLET PO SCH ×2 (09:16→21:08)
[2020-07-08] MEDS: FERROUS SULFATE 325MG TABLET PO SCH ×3 (09:16→17:50)
[2020-07-08 12:00] VITALS: BP 137/51
[2020-07-08] MEDS: MICAFUNGIN 100 MG in SODIUM CHLORIDE 0.9% 100 ML IV SCH (14:18)
[2020-07-08 16:00] VITALS: BP 147/67
[2020-07-08 20:00] VITALS: BP 136/54
[2020-07-08] MEDS ORDERED: EPOETIN ALFA-EPBX 4,000 UNIT/ML VIAL SUBCUT SCH (21:00)
[2020-07-08] MEDS: ATORVASTATIN CALCIUM 40MG TABLET PO SCH (21:08)
[2020-07-08] MEDS: INSULIN GLARGINE UD 100 UNITS/ML SYR SUBCUT SCH (21:15)
[2020-07-09] VITALS (8 sets, daily range): BP systolic 152–187; BP diastolic 55–84
[2020-07-09] MEDS ORDERED: CLONIDINE 0.1MG TABLET PO PRN (00:30)
[2020-07-09] MEDS: HYDROCODONE/ACETAMINOPHEN 10/325MG TABLET PO PRN ×3 (01:57→21:48)
[2020-07-09] MEDS: SODIUM CHLORIDE 0.9% 1,000 ML IV SCH (01:58)
[2020-07-09] MEDS: HYDRALAZINE HCL 50MG TABLET PO SCH (06:14)
[2020-07-09] MEDS: BLOOD SUGAR DIAGNOSTIC STRIP TEST SCH ×4 (06:25→21:50)
[2020-07-09 06:33] LABS: BASOPHILS % 0.7 % (0.0-2.0); EOSINOPHILS % 2.6 % (0.0-5.0); HEMATOCRIT. 28.4 % (42.0-52.0); HEMOGLOBIN. 9.3 g/dL (14.0-18.0); LYMPHOCYTES % 11.2 % (20.0-50.0); MEAN CORPUSCULAR HEMOGLOBIN 27.6 pg (28.0-32.0); MEAN CORPUSCULAR VOLUME 84.4 fL (80.0-94.0); MEAN PLATELET VOLUME 7.2 fl (7.4-10.4); MONOCYTES % 9.8 % (2.0-8.0); NEUTROPHILS % 75.7 % (40.0-76.0); PLATELET 195 x1000/uL (130-400); RED BLOOD CELL COUNT 3.36 mill/uL (4.7-6.1); RED CELL DISTRIBUTION WIDTH 17.2 % (11.6-14.6)
[2020-07-09 06:34] LABS: INR 1.1; PARTIAL THROMBOPLASTIN TIME 34.9 sec (23.4-31.0); PROTHROMBIN TIME 11.4 sec (9.6-11.0)
[2020-07-09] MEDS: INSULIN LISPRO 100 UNITS/ML SUBCUT SCH ×4 (07:50→21:30)
[2020-07-09] MEDS ORDERED: LIDOCAINE HCL 1% 20ML VIAL (Pyxis) INJ ONE (07:54)
[2020-07-09 08:19] LABS: PHOSPHORUS 2.8 mg/dL (2.5-4.9)
[2020-07-09] MEDS ORDERED: IOHEXOL-300 50 ML BOTTLE IV ONE (08:25)
[2020-07-09] MEDS: CARVEDILOL 12.5MG TABLET PO SCH ×2 (09:00→21:49)
[2020-07-09] MEDS: ISOSORBIDE MONONITRATE 60MG TABLET SR 24HR PO SCH (09:00)
[2020-07-09] MEDS: ASPIRIN 81MG TABLET PO SCH (09:38)
[2020-07-09] MEDS: FERROUS SULFATE 325MG TABLET PO SCH ×3 (09:38→18:18)
[2020-07-09] MEDS: FOLIC ACID/VITAMIN B COMP W-C TABLET PO SCH (09:38)
[2020-07-09] MEDS: ZINC SULFATE 220 MG ( 50 ) CAPSULE PO SCH (09:38)
[2020-07-09] MEDS: FLUCONAZOLE 100MG TABLET PO SCH (09:38)
[2020-07-09] MEDS: ENOXAPARIN 80MG/0.8ML SYR SUBCUT SCH (09:39)
[2020-07-09] MEDS: ACETAMINOPHEN 650MG/20.3ML UDC PO PRN (09:42)
[2020-07-09] MEDS: HYDRALAZINE HCL 25MG TABLET PO SCH ×2 (13:55→21:50)
[2020-07-09] MEDS: INSULIN GLARGINE UD 100 UNITS/ML SYR SUBCUT SCH (21:30)
[2020-07-09] MEDS: ATORVASTATIN CALCIUM 40MG TABLET PO SCH (21:49)
[2020-07-10] VITALS: BP 146/58
[2020-07-10] MEDS: SODIUM CHLORIDE 0.9% 1,000 ML IV SCH (02:16)
[2020-07-10 04:00] VITALS: BP 182/92
[2020-07-10] MEDS: HYDROCODONE/ACETAMINOPHEN 10/325MG TABLET PO PRN ×2 (05:33→18:36)
[2020-07-10] MEDS: HYDRALAZINE HCL 25MG TABLET PO SCH ×3 (05:34→21:26)
[2020-07-10] MEDS: BLOOD SUGAR DIAGNOSTIC STRIP TEST SCH ×3 (06:37→20:45)
[2020-07-10 06:45] LABS: BASOPHILS % 0.6 % (0.0-2.0); EOSINOPHILS % 1.8 % (0.0-5.0); HEMOGLOBIN. 10.4 g/dL (14.0-18.0); LYMPHOCYTES % 11.5 % (20.0-50.0); MEAN CORPUSCULAR HEMOGLOBIN 27.8 pg (28.0-32.0); MEAN CORPUSCULAR VOLUME 85.3 fL (80.0-94.0); MEAN PLATELET VOLUME 7.1 fl (7.4-10.4); MONOCYTES % 10.5 % (2.0-8.0); NEUTROPHILS % 75.6 % (40.0-76.0); PLATELET 222 x1000/uL (130-400); RED BLOOD CELL COUNT 3.75 mill/uL (4.7-6.1); RED CELL DISTRIBUTION WIDTH 17.8 % (11.6-14.6)
[2020-07-10 07:18] LABS: PHOSPHORUS 2.7 mg/dL (2.5-4.9)
[2020-07-10] MEDS: INSULIN LISPRO 100 UNITS/ML SUBCUT SCH ×3 (07:50→21:28)
[2020-07-10 08:00] VITALS: BP 170/80
[2020-07-10] MEDS: FLUCONAZOLE 100MG TABLET PO SCH (08:22)
[2020-07-10] MEDS: ZINC SULFATE 220 MG ( 50 ) CAPSULE PO SCH (08:22)
[2020-07-10] MEDS: ASPIRIN 81MG TABLET PO SCH (08:23)
[2020-07-10] MEDS: FOLIC ACID/VITAMIN B COMP W-C TABLET PO SCH (08:23)
[2020-07-10] MEDS: CARVEDILOL 12.5MG TABLET PO SCH ×2 (08:23→21:27)
[2020-07-10] MEDS: ISOSORBIDE MONONITRATE 60MG TABLET SR 24HR PO SCH (08:23)
[2020-07-10] MEDS: FERROUS SULFATE 325MG TABLET PO SCH ×2 (08:23→13:11)
[2020-07-10] MEDS: ENOXAPARIN 80MG/0.8ML SYR SUBCUT SCH (08:24)
[2020-07-10 12:00] VITALS: BP 144/60
[2020-07-10 20:00] VITALS: BP 150/81
[2020-07-10] MEDS: ATORVASTATIN CALCIUM 40MG TABLET PO SCH (21:24)
[2020-07-10] MEDS: INSULIN GLARGINE UD 100 UNITS/ML SYR SUBCUT SCH (21:26)
[2020-07-11] VITALS: BP 145/70
[2020-07-11 04:00] VITALS: BP 162/52
[2020-07-11] MEDS: HYDROCODONE/ACETAMINOPHEN 10/325MG TABLET PO PRN ×4 (04:45→22:12)
[2020-07-11] MEDS: INSULIN LISPRO 100 UNITS/ML SUBCUT SCH ×4 (05:55→21:00)
[2020-07-11] MEDS: BLOOD SUGAR DIAGNOSTIC STRIP TEST SCH ×4 (05:55→20:57)
[2020-07-11] MEDS: HYDRALAZINE HCL 25MG TABLET PO SCH ×3 (05:55→21:01)
[2020-07-11 07:42] LABS: BASOPHILS % 0.6 % (0.0-2.0); EOSINOPHILS % 2.5 % (0.0-5.0); HEMATOCRIT. 26.9 % (42.0-52.0); HEMOGLOBIN. 8.7 g/dL (14.0-18.0); LYMPHOCYTES % 12.3 % (20.0-50.0); MEAN CORPUSCULAR HEMOGLOBIN 27.6 pg (28.0-32.0); MEAN CORPUSCULAR VOLUME 85.5 fL (80.0-94.0); MEAN PLATELET VOLUME 7.2 fl (7.4-10.4); MONOCYTES % 10.9 % (2.0-8.0); NEUTROPHILS % 73.7 % (40.0-76.0); PLATELET 218 x1000/uL (130-400); RED BLOOD CELL COUNT 3.15 mill/uL (4.7-6.1); RED CELL DISTRIBUTION WIDTH 17.9 % (11.6-14.6)
[2020-07-11 07:48] LABS: PHOSPHORUS 2.7 mg/dL (2.5-4.9)
[2020-07-11 08:00] VITALS: BP 152/69
[2020-07-11] MEDS: ZINC SULFATE 220 MG ( 50 ) CAPSULE PO SCH (09:11)
[2020-07-11] MEDS: FOLIC ACID/VITAMIN B COMP W-C TABLET PO SCH (09:11)
[2020-07-11] MEDS: ASPIRIN 81MG TABLET PO SCH (09:11)
[2020-07-11] MEDS: CARVEDILOL 12.5MG TABLET PO SCH ×2 (09:12→20:56)
[2020-07-11] MEDS: ISOSORBIDE MONONITRATE 60MG TABLET SR 24HR PO SCH (09:13)
[2020-07-11] MEDS: FLUCONAZOLE 100MG TABLET PO SCH (09:13)
[2020-07-11] MEDS: ENOXAPARIN 80MG/0.8ML SYR SUBCUT SCH (09:14)
[2020-07-11] MEDS: FERROUS SULFATE 325MG TABLET PO SCH ×3 (09:16→17:51)
[2020-07-11 12:00] VITALS: BP 153/64
[2020-07-11] MEDS: SODIUM CHLORIDE 0.9% 1,000 ML IV SCH (12:30)
[2020-07-11 16:00] VITALS: BP 155/80
[2020-07-11 20:00] VITALS: BP 157/62
[2020-07-11] MEDS: ATORVASTATIN CALCIUM 40MG TABLET PO SCH (20:56)
[2020-07-11] MEDS: INSULIN GLARGINE UD 100 UNITS/ML SYR SUBCUT SCH (21:00)
[2020-07-12] VITALS: BP_SYST 136; BP_SYST 157; BP_DIAS 51; BP_DIAS 62
[2020-07-12 04:00] VITALS: BP 165/50
[2020-07-12] MEDS: HYDRALAZINE HCL 25MG TABLET PO SCH ×2 (05:54→13:59)
[2020-07-12] MEDS: HYDROCODONE/ACETAMINOPHEN 10/325MG TABLET PO PRN ×3 (05:55→14:26)
[2020-07-12] MEDS: BLOOD SUGAR DIAGNOSTIC STRIP TEST SCH ×2 (06:00→11:36)
[2020-07-12] MEDS: INSULIN LISPRO 100 UNITS/ML SUBCUT SCH ×2 (06:55→11:36)
[2020-07-12 06:58] LABS: BASOPHILS % 0.9 % (0.0-2.0); EOSINOPHILS % 2.1 % (0.0-5.0); HEMATOCRIT. 30.6 % (42.0-52.0); HEMOGLOBIN. 9.8 g/dL (14.0-18.0); LYMPHOCYTES % 11.2 % (20.0-50.0); MEAN CORPUSCULAR HEMOGLOBIN 27.4 pg (28.0-32.0); MEAN CORPUSCULAR VOLUME 85.9 fL (80.0-94.0); MEAN PLATELET VOLUME 6.9 fl (7.4-10.4); MONOCYTES % 8.8 % (2.0-8.0); PLATELET 258 x1000/uL (130-400); RED BLOOD CELL COUNT 3.56 mill/uL (4.7-6.1); RED CELL DISTRIBUTION WIDTH 18.3 % (11.6-14.6)
[2020-07-12 07:44] LABS: PHOSPHORUS 2.9 mg/dL (2.5-4.9)
[2020-07-12 08:00] VITALS: BP 127/60
[2020-07-12] MEDS: FOLIC ACID/VITAMIN B COMP W-C TABLET PO SCH (08:55)
[2020-07-12] MEDS: ENOXAPARIN 80MG/0.8ML SYR SUBCUT SCH (08:55)
[2020-07-12] MEDS: FLUCONAZOLE 100MG TABLET PO SCH (08:55)
[2020-07-12] MEDS: ZINC SULFATE 220 MG ( 50 ) CAPSULE PO SCH (08:56)
[2020-07-12] MEDS: FERROUS SULFATE 325MG TABLET PO SCH ×2 (08:56→14:03)
[2020-07-12] MEDS: CARVEDILOL 12.5MG TABLET PO SCH (08:56)
[2020-07-12] MEDS: ISOSORBIDE MONONITRATE 60MG TABLET SR 24HR PO SCH (08:56)
[2020-07-12 12:00] VITALS: BP 161/83
[2020-07-12 15:55] VITALS: BP 152/83
== END 2020-07-12 17:10 | DRG 853 ==
LOC: 6EST 22:30
PROVIDERS: ADMIT Internal Medicine; ATTEND Internal Medicine
PROC: 0X6P0Z1 Detachment at Left Index Finger, High, Open Approach (ICD-10-PCS; principal; 2020-06-26)
PROC: 0X6M0Z1 Detachment at Left Thumb, High, Open Approach (ICD-10-PCS; 2020-06-26)
PROC: 0X6W0Z1 Detachment at Left Little Finger, High, Open Approach (ICD-10-PCS; 2020-06-26)
PROC: 0X6R0Z1 Detachment at Left Middle Finger, High, Open Approach (ICD-10-PCS; 2020-06-26)
PROC: 0X6T0Z1 Detachment at Left Ring Finger, High, Open Approach (ICD-10-PCS; 2020-06-26)
PROC: 5A1D70Z Performance of Urinary Filtration, Intermittent, Less than 6 Hours Per Day (ICD-10-PCS; 2020-06-26)
PROC: 5A1D70Z Performance of Urinary Filtration, Intermittent, Less than 6 Hours Per Day (ICD-10-PCS; 2020-06-28)
PROC: 5A1D70Z Performance of Urinary Filtration, Intermittent, Less than 6 Hours Per Day (ICD-10-PCS; 2020-07-01)
PROC: 5A1D70Z Performance of Urinary Filtration, Intermittent, Less than 6 Hours Per Day (ICD-10-PCS; 2020-07-03)
PROC: 0JPT3XZ Removal of Tunneled Vascular Access Device from Trunk Subcutaneous Tissue and Fascia, Percutaneous Approach (ICD-10-PCS; 2020-07-05)
PROC: 5A1D70Z Performance of Urinary Filtration, Intermittent, Less than 6 Hours Per Day (ICD-10-PCS; 2020-07-05)
PROC: 02HV33Z Insertion of Infusion Device into Superior Vena Cava, Percutaneous Approach (ICD-10-PCS; 2020-07-09)
PROC: B548ZZA Ultrasonography of Superior Vena Cava, Guidance (ICD-10-PCS; 2020-07-09)
PROC: B5181ZA Fluoroscopy of Superior Vena Cava using Low Osmolar Contrast, Guidance (ICD-10-PCS; 2020-07-09)
PROC: 5A1D70Z Performance of Urinary Filtration, Intermittent, Less than 6 Hours Per Day (ICD-10-PCS; 2020-07-09)
PROC: 5A1D70Z Performance of Urinary Filtration, Intermittent, Less than 6 Hours Per Day (ICD-10-PCS; 2020-07-12)
DX: A41.9 Sepsis, unspecified organism (principal); I21.4 Non-ST elevation (NSTEMI) myocardial infarction; N18.6 End stage renal disease; E11.52 Type 2 diabetes mellitus with diabetic peripheral angiopathy with gangrene; N25.81 Secondary hyperparathyroidism of renal origin; I50.22 Chronic systolic (congestive) heart failure; I13.2 Hypertensive heart and chronic kidney disease with heart failure and with stage 5 chronic kidney disease, or end stage renal disease; I82.C11 Acute embolism and thrombosis of right internal jugular vein; B49 Unspecified mycosis; E87.1 Hypo-osmolality and hyponatremia; I96 Gangrene, not elsewhere classified; E46 Unspecified protein-calorie malnutrition; I25.10 Atherosclerotic heart disease of native coronary artery without angina pectoris; D64.9 Anemia, unspecified; E11.22 Type 2 diabetes mellitus with diabetic chronic kidney disease; E78.00 Pure hypercholesterolemia, unspecified; E78.5 Hyperlipidemia, unspecified; I99.8 Other disorder of circulatory system; Z53.20 Procedure and treatment not carried out because of patient's decision for unspecified reasons; Z20.822 Contact with and (suspected) exposure to COVID-19; M20.092 Other deformity of left finger(s); L89.626 Pressure-induced deep tissue damage of left heel; L89.616 Pressure-induced deep tissue damage of right heel; L89.896 Pressure-induced deep tissue damage of other site; L89.516 Pressure-induced deep tissue damage of right ankle; E11.42 Type 2 diabetes mellitus with diabetic polyneuropathy; L89.156 Pressure-induced deep tissue damage of sacral region; I16.0 Hypertensive urgency; Z99.2 Dependence on renal dialysis; Z95.810 Presence of automatic (implantable) cardiac defibrillator; Z79.4 Long term (current) use of insulin; Z82.49 Family history of ischemic heart disease and other diseases of the circulatory system; Z83.3 Family history of diabetes mellitus; Z79.899 Other long term (current) drug therapy; Z68.26 Body mass index [BMI] 26.0-26.9, adult
CPT/HCPCS: 36415; 36556; 36589; 71045; 76937; 77001; 80048; 80076; 80202; 82040; 82550; 82553; 82962; 83036; 83735; 84100; 84134; 84145; 84484; 85025; 87070; 87075; 87077; 87186; 87426; 88305; 88311; 93005; 93306; 93308; 93923; 93970; 97110; 97162; 97166; 97530; 97535; C1752; C1769; C1893; J0885; J1100; J1642; J1650; J1815; J2185; J2248; J2250; J2270; J2405; J2543; J2795; J3370; J3490; J7030; J7050; J7060; Q9967